=== PATIENT | male | born 1945 | race Caucasian/White ===

== ENCOUNTER 2023-07-03 09:46 | Emergency (ER) | payer OTHER ==
[2023-07-03] MEDS ORDERED: dexAMETHasone 10 MG/ML VIAL ONE (10:14)
[2023-07-03] MEDS ORDERED: IPRATROPIUM BROM 0.5MG/2.5ML ONE (10:14)
[2023-07-03] MEDS ORDERED: BENZONATATE 100 MG CAP PO ONE (10:14)
[2023-07-03] MEDS ORDERED: ALBUTEROL 2.5 MG/3 ML NEB SOL ONE (10:14)
[2023-07-03 11:36] LABS: INFLUENZA A NAA POSITIVE (NEGATIVE); RESPIRATORY SYNCYTIAL VIR NAA NEGATIVE (NEGATIVE); SARS-COV-2 RT PCR NEGATIVE (NEGATIVE)
--- NOTE | 2023-07-03 11:41 | ER ---
Nurse's Notes [facility] Name: Sanjiv Rust Age: 78 yrs Sex: Male : 1945 Arrival Date: 07/03/2023 Time: 09:46 Bed 6 Private MD: Diagnosis: Viral infection, unspecified;Influenza due to identified novel influenza A virus Presentation: 07/02 09:52 Chief complaint: Patient states: diff breathing , chest congestion, fatigue, cough, iw since Tuesday , took a home COVID test and it was negative, their doctor prescribed flu meds and bromfed and symptoms still persisted. Coronavirus screen: Client presents with at least one sign or symptom that may indicate coronavirus-19. Ebola Screen: No symptoms or risks identified at this time. Initial Sepsis Screen: Does the patient meet any 2 criteria? No. Patient's initial sepsis screen is negative. Does the patient have a suspected source of infection? No. Patient's initial sepsis screen is negative. Risk Assessment: Do you want to hurt yourself or someone else? Patient reports no desire to harm self or others. Onset of symptoms was June 27, 2023. 09:52 Method Of Arrival: Ambulatory iw 09:52 Acuity: [id number] 3 iw Historical: - Allergies: 09:55 No Known Allergies; iw - PMHx: 09:55 Hypertensive disorder; iw - PSHx: 09:55 cardiac ablation; knee; iw - Immunization history:: Client reports receiving the 2nd dose of the Covid vaccine, Flu vaccine is not up to date. - Infectious Disease History:: Denies. - Social history:: Smoking status: Patient/guardian denies using tobacco, but has a distant history of tobacco abuse. Screenin:50 [facility] ED Fall Risk Assessment (Adult) History of falling in the last 3 months, ss including since admission No falls in past 3 months (0 pts) Confusion or Disorientation No (0 pts) Intoxicated or Sedated No (0 pts) Impaired Gait No (0 pts) Mobility Assist Device Used No (0 pt) Altered Elimination No (0 pt) Score/Fall Risk Level 0 - 2 = Low Risk Maintained a safe environment. Abuse screen: Denies threats or abuse. Denies injuries from another. Nutritional screening: No deficits noted. Tuberculosis screening: Never had TB. Assessment: 10:00 General: Appears comfortable, Behavior is calm, cooperative. Pain: Denies pain. Neuro: aa5 Level of Consciousness is awake, alert, obeys commands, Oriented to person, place, time, situation. Cardiovascular: Heart tones S1 S2 present Rhythm is regular. Respiratory: Reports shortness of breath cough since Tuesday, reports chest congestion Airway is patent Respiratory effort is even, unlabored, Respiratory pattern is regular, symmetrical, Breath sounds with wheezes bilaterally. GI: Abdomen is round. : No signs and/or symptoms were reported regarding the genitourinary system. EENT: Reports nasal congestion. Derm: Skin is pink, warm \T\ dry. Musculoskeletal: Range of motion: intact in all extremities. 10:50 Reassessment: Patient appears in no apparent distress at this time. Neb completed. Pt ss has no complaints at this time. Call light remains within reach. Awaiting on swab results as well as XRAY. Patient and updated on approximate expected wait time. Neuro: Level of Consciousness is awake, alert. Respiratory: Airway is patent Respiratory effort is even, unlabored. 11:55 Reassessment: Patient is alert, oriented x 3, equal unlabored respirations, skin aa5 warm/dry/pink. Patient states feeling better. Patient states symptoms have improved. Vital Signs: 09:52 BP 123 / 69; Pulse 71; Resp 18; Temp 97(TE); Pulse Ox 97% on R/A; Weight 92.99 kg; iw Height 5 ft. 11 in. ; 10:48 BP 116 / 68; Pulse 64; Pulse Ox 100% on Nebulizer Mask; ss 11:30 BP 128 / 66; Pulse 64; Resp 20 S; Pulse Ox 97% on R/A; aa5 09:52 Body Mass Index 28.59 (92.99 kg, 180.34 cm) iw ED Course: 09:49 Patient arrived in ED. im 09:54 Triage completed. iw 09:55 Arm band placed on. iw 09:57 Angelica Cruz RN is Primary Nurse. aa5 10:02 Anthony Elam MD is Attending Physician. ec2 10:22 CXR XRAY In Process Unspecified. EDMS 10:50 Patient has correct armband on for positive identification. Placed in gown. Bed in low ss position. Call light in reach. Side rails up X 1. Pulse ox on. NIBP on. 11:55 No provider procedures requiring assistance completed. Patient did not have IV access aa5 during this emergency room visit. 11:55 O2 via Room air. aa5 Administered Medications: 10: Drug: Tessalon Perle PO 100 mg PO once Route: PO; aa5 10:50 Follow up: Response: No adverse reaction aa5 10: Drug: Dexamethasone IM 10 mg IM once Route: IM; Site: right deltoid; aa5 10:50 Follow up: Response: No adverse reaction aa5 10: Drug: DuoNeb Nebulize (3:1) (2.5 mg - 0.5 mg) 3 ml Nebulizer once Route: Nebulizer; aa5 10:50 Follow up: Response: No adverse reaction; Marked relief of symptoms aa5 Medication: 10:50 VIS not applicable for this client. ss Outcome: 11:40 Discharge ordered by . ec2 11:55 Discharged to home ambulatory, with family, aa5 11:55 Condition: improved 11:55 Discharge instructions given to patient, Instructed on discharge instructions, follow up and referral plans. medication usage, Demonstrated understanding of instructions, follow-up care, medications, Prescriptions given X 3, 11:59 Patient left the ED. aa5 Signatures: Dispatcher [employer] Ruthie Kay RN RN iw Calderon, Audri, RN RN aa5 Joanie Petersen RN RN ss Mendoza, Itzel im Corral, Edwin, MD MD ec2 Corrections: (The following items were deleted from the chart) 10:04 09:52 BP 123 / 69; Pulse 71bpm; Resp 18bpm; Pulse Ox 97% RA; 92.99 kg; Height 5 ft. 11 iw in.; BMI: 28.5; iw
--- NOTE | 2023-07-03 11:41 | EDPHYS ---
Physician Documentation [facility] Name: Sanjiv Rust Age: 78 yrs Sex: Male : 1945 Arrival Date: 07/03/2023 Time: 09:46 Bed 6 Private MD: ED Physician Anthony Elam HPI: 07/02 10:12 This 78 yrs old Male presents to ER via Ambulatory with complaints of Flu ec2 Symptoms, Chest Congestion. 10:12 Patient arrives today for 6 days of symptoms. Patient been having cough and congestion ec2 as well as generalized weakness. Patient reports he has had a negative home COVID test, because primary care doctor, started the patient on Tamiflu. No issues with p.o. intake, does report some generalized weakness. . Historical: - Allergies: 09:55 No Known Allergies; iw - PMHx: 09:55 Hypertensive disorder; iw - PSHx: 09:55 cardiac ablation; knee; iw - Immunization history:: Client reports receiving the 2nd dose of the Covid vaccine, Flu vaccine is not up to date. - Infectious Disease History:: Denies. - Social history:: Smoking status: Patient/guardian denies using tobacco, but has a distant history of tobacco abuse. ROS: 10:12 Constitutional: as per hpi ec2 Exam: 10:12 Constitutional: GEN: NAD Head: atraumatic Eyes: EOMI Ears: External ears are ec2 normal. CV: regular rate LUNGS: no respiratory distress, scattered wheezes throughout all lung zhu ABD: non-distended SKIN: no evidence of rashes MSK: no evidence of trauma NEURO: moves all extremities equally Vital Signs: 09:52 BP 123 / 69; Pulse 71; Resp 18; Temp 97(TE); Pulse Ox 97% on R/A; Weight 92.99 kg; iw Height 5 ft. 11 in. ; 10:48 BP 116 / 68; Pulse 64; Pulse Ox 100% on Nebulizer Mask; ss 11:30 BP 128 / 66; Pulse 64; Resp 20 S; Pulse Ox 97% on R/A; aa5 09:52 Body Mass Index 28.59 (92.99 kg, 180.34 cm) iw MDM: 10:05 Patient medically screened. ec2 10:13 Data reviewed: vital signs. ED course: Patient arrives today for evaluation of upper ec2 respiratory symptoms ongoing for 6 days. Examination remarkable for scattered wheezes noted throughout lung zhu. Will obtain viral swab, chest x-ray, treat the patient with a DuoNeb, steroid as well as antitussive medication. Suspect viral infection, additionally considering pneumonia. Patient otherwise with reassuring hemodynamics, will forego lab work such as CBC or BMP at this time.. 11:00 ED course: Chest x-ray independently reviewed and interpreted by me, shows no acute ec2 intrathoracic process. . 07/02 10:13 Order name: COVID-19/FLU A+B/RSV; Complete Time: 11:40 ec2 07/02 10:11 Order name: CXR XRAY ec2 Administered Medications: 10:26 Drug: Tessalon Perle PO 100 mg PO once Route: PO; aa5 10:50 Follow up: Response: No adverse reaction aa5 10:27 Drug: Dexamethasone IM 10 mg IM once Route: IM; Site: right deltoid; aa5 10:50 Follow up: Response: No adverse reaction aa5 10:27 Drug: DuoNeb Nebulize (3:1) (2.5 mg - 0.5 mg) 3 ml Nebulizer once Route: Nebulizer; aa5 10:50 Follow up: Response: No adverse reaction; Marked relief of symptoms aa5 Disposition Summary: 07/03/23 11:40 Discharge Ordered Notes: Location: Home ec2 Condition: Stable ec2 Diagnosis - Viral infection, unspecified ec2 - Influenza due to identified novel influenza A virus ec2 Followup: ec2 - With: Private Physician - When: - Reason: Re-evaluation by your physician Discharge Instructions: - Discharge Summary Sheet ec2 - Viral Illness, Adult ec2 Forms: - Medication Reconciliation Form ec2 - Antibiotic Education ec2 - Prescription Opioid Use ec2 - Patient Portal Instructions ec2 - Leadership Thank You Letter ec2 Prescriptions: - albuterol sulfate 90 mcg/actuation Inhalation HFA Aerosol Inhaler - inhale 2 inhalation INHALATION route every 4 hours administer via ventilator; 1 ec2 unit; Refills: 0, Product Selection Permitted - Tessalon Perles 100 mg Oral Capsule - take 1 capsule ORAL route every 8 hours As needed; 15 capsule; Refills: 0, ec2 Product Selection Permitted - Prednisone 20 mg Oral Tablet - take 2 tablets ORAL route once daily for 5 days; 10 tablet; Refills: 0, Product ec2 Selection Permitted Signatures: Dispatcher [employer] Ruthie Kay RN RN iw Angelica Cruz RN RN aa5 Anthony Elma MD MD ec2 Corrections: (The following items were deleted from the chart) 10:12 10:12 Chest Single View+[email or web address] ordered. EDMS EDMS
[2023-07-03 12:03] VITALS: TEMP 97
--- NOTE | 2023-07-03 12:13 | RAD REPORT ---
[facility]2023 10:20 am CLINICAL HISTORY: COUGH COMPARISON: No comparisons TECHNIQUE: Portable AP view of the chest. FINDINGS: The lungs are clear. No pneumothorax or effusion. The cardiomediastinal contours are unre markable. IMPRESSION: No acute cardiopulmonary process.
[2023-07-03 12:28] VITALS: BP 116/68; O2SAT 100
== END 2023-07-03 11:59 | disposition home or self-care (01) ==
LOC: ER 09:46
DX: J10.1 Influenza due to other identified influenza virus with other respiratory manifestations (principal); Z11.52 Encounter for screening for COVID-19; I10 Essential (primary) hypertension
CPT/HCPCS: 0241U; 71045; 94640; 96372; 99285; J7613; J7644; J1100